=== PATIENT | female | born 1985 | race Caucasian/White ===

== ENCOUNTER 2020-04-02 10:53 | Inpatient (IN) | payer OTHER ==
[~2020-04-02] VITALS: Ht 157.5 cm; Wt 57.7 kg
[2020-04-02] MEDS ORDERED: MESA800T PO (11:11)
[2020-04-02 11:57] LABS: BASOPHILS % (AUTO) 0.1 % (0.0-2.0); EOSINOPHILS % (AUTO) 0.5 % (0.0-7.0); HEMATOCRIT 32.2 % (31.2-41.9); HEMOGLOBIN 10.8 g/dL (10.9-14.3); LYMPHOCYTES # (AUTO) 2.2 K/uL (20.0-40.0); LYMPHOCYTES % (AUTO) 31.3 % (20.5-51.5); MEAN CORPUSCULAR HEMOGLOBIN 29.9 uug (24.7-32.8); MEAN CORPUSCULAR HGB CONC 34 g/dL (32.3-35.6); MEAN CORPUSCULAR VOLUME 89.2 fL (75.5-95.3); MONOCYTES # (AUTO) 0.4 K/uL (2.0-10.0); MONOCYTES % (AUTO) 6.3 % (0.0-11.0); NEUTROPHILS # (AUTO) 4.3 K/uL (1.8-8.9); NEUTROPHILS % (AUTO) 61.8 % (38.5-71.5); PLATELET COUNT (AUTO) 227 K/uL (179-408); RED BLOOD CELL COUNT(AUTO) 3.61 MIL/uL (3.63-4.92)
[2020-04-02 12:05] LABS: CREATININE 0.8 mg/dL (0.6-1.3); POTASSIUM 3.7 mmol/L (3.5-5.1)
[2020-04-02 12:10] LABS: BILIRUBIN,DIRECT 0.2 mg/dL (0.0-0.2); BILIRUBIN,TOTAL 0.5 mg/dL (0.2-1.0); TOTAL PROTEIN, SERUM 7.6 g/dL (6.4-8.2)
[2020-04-02] MEDS ORDERED: BIRTH CONTROL MED (12:48)
[2020-04-02] MEDS ORDERED: TEMAZEPAM 15 MG CAPSULE PO PRN (16:30)
[2020-04-02] MEDS ORDERED: ONDANSETRON 4 MG/2 ML VIAL IV PRN (16:30)
[2020-04-02] MEDS ORDERED: HYDROCODONE/APAP 5-325MG TABLET PO PRN (16:30)
[2020-04-02] MEDS ORDERED: HEPARIN/D5W DRIP 500 ML ONE (17:17)
[2020-04-02 20:28] VITALS: BP 90/61
[2020-04-02] MEDS: HEPARIN/D5W DRIP 500 ML IV PRN (21:09)
[2020-04-03 00:50] VITALS: BP 101/65
[2020-04-03] MEDS: ACETAMINOPHEN 325 MG TABLET PO PRN ×2 (03:39→17:03)
[2020-04-03 03:53] LABS: BASOPHILS % (AUTO) 0.1 % (0.0-2.0); EOSINOPHILS # (AUTO) 0.1 K/uL (0.0-0.7); EOSINOPHILS % (AUTO) 1.1 % (0.0-7.0); HEMATOCRIT 31.4 % (31.2-41.9); HEMOGLOBIN 10.6 g/dL (10.9-14.3); LYMPHOCYTES # (AUTO) 2.4 K/uL (20.0-40.0); LYMPHOCYTES % (AUTO) 40.2 % (20.5-51.5); MEAN CORPUSCULAR HEMOGLOBIN 29.8 uug (24.7-32.8); MEAN CORPUSCULAR HGB CONC 34 g/dL (32.3-35.6); MEAN CORPUSCULAR VOLUME 88.5 fL (75.5-95.3); MONOCYTES # (AUTO) 0.5 K/uL (2.0-10.0); MONOCYTES % (AUTO) 7.6 % (0.0-11.0); NEUTROPHILS # (AUTO) 3.1 K/uL (1.8-8.9); PLATELET COUNT (AUTO) 237 K/uL (179-408); RED BLOOD CELL COUNT(AUTO) 3.55 MIL/uL (3.63-4.92); WHITE BLOOD COUNT (AUTO) 6.1 K/uL (3.8-11.8)
[2020-04-03 04:04] LABS: CREATININE 0.7 mg/dL (0.6-1.3); POTASSIUM 3.7 mmol/L (3.5-5.1)
[2020-04-03 04:10] LABS: BILIRUBIN,TOTAL 0.3 mg/dL (0.2-1.0); MAGNESIUM 2.1 mg/dL (1.8-2.4); PHOSPHOROUS 3.9 mg/dL (2.5-4.9); TOTAL PROTEIN, SERUM 7.3 g/dL (6.4-8.2)
[2020-04-03 04:48] VITALS: BP 90/59
[2020-04-03] MEDS: PANTOPRAZOLE SODIUM 40 MG TABLET.DR PO SCH (07:15)
[2020-04-03] MEDS: MESALAMINE 400 MG CAPSULE.ER PO SCH ×2 (08:21→08:25)
[2020-04-03] MEDS ORDERED: ASACOL HD 800 MG PO SCH (10:30)
[2020-04-03 11:54] VITALS: BP 88/59
[2020-04-03] MEDS: ASACOL HD 800 MG PO SCH ×2 (13:21→19:37)
[2020-04-03 15:46] VITALS: BP 88/54
[2020-04-03] MEDS: HEPARIN/D5W DRIP 500 ML IV PRN (19:32)
[2020-04-03 20:00] VITALS: BP 91/56
[2020-04-03 21:35] LABS: *OCCULT BLOOD STOOL NEGATIVE (NEGATIVE)
[2020-04-04] VITALS: BP 97/63
[2020-04-04 04:00] VITALS: BP 94/55
[2020-04-04] MEDS: PANTOPRAZOLE SODIUM 40 MG TABLET.DR PO SCH (06:32)
[2020-04-04] MEDS: ASACOL HD 800 MG PO SCH (08:53)
[2020-04-04] MEDS ORDERED: APIXABAN 2.5 MG TABLET PO SCH ×2 (09:55→10:30)
[2020-04-04] MEDS ORDERED: [UNRECOGNIZED DRUG - OTHER] PO (11:17)
[2020-04-04] MEDS ORDERED: APIX2.5T PO (11:17)
[2020-04-04 11:21] VITALS: BP 93/59
[2020-04-04] MEDS: ACETAMINOPHEN 325 MG TABLET PO PRN (11:39)
[2020-04-06 03:11] LABS: BETA-2-GLYCOPROTEIN IGG/M/A < 9 (0-25)
== END 2020-04-04 13:15 | disposition home or self-care (01) | DRG 197 ==
LOC: ER 10:53 → TELE3 18:40
PROVIDERS: ADMIT Internal Medicine; ATTEND Internal Medicine
DX: I82.442 Acute embolism and thrombosis of left tibial vein (principal); D64.9 Anemia, unspecified; K51.90 Ulcerative colitis, unspecified, without complications; D68.69 Other thrombophilia
CPT/HCPCS: 36415; 70030-TC; 83550; 83735; 84100; 85025; 85305; 85613; 85730; 86140; A4663; G0378; J1644; J7040